=== PATIENT | female | born 1975 ===

== ENCOUNTER 2016-10-07 08:09 | Inpatient (IN) | payer OTHER ==
[~2016-10-07] VITALS: Ht 175.3 cm; Wt 135.0 kg
[2016-10-07] MEDS ORDERED: PRENTAB9 PO (08:19)
[2016-10-07] MEDS ORDERED: LABE10TAB PO (08:19)
[2016-10-07] MEDS ORDERED: miSOPROStol 25 MCG 1/4 TAB (S0191) As Ordered ONE (08:43)
[2016-10-07 09:09] VITALS: BP 122/80
[2016-10-07] MEDS ORDERED: AMPICILLIN SOD 2 GM in D5W MINI-BAG PLUS 100 ML IV STA (09:14)
[2016-10-07] MEDS ORDERED: miSOPROStol 25 MCG 1/4 TAB (S0191) PV ONE (09:15)
[2016-10-07] MEDS: LR 1,000 ML IV SCH ×2 (09:22→17:12)
[2016-10-07 09:41] LABS: MEAN CORPUSCULAR HEMOGLOBIN 33.4 pg (27.0-33.0); MEAN CORPUSCULAR VOLUME 92.7 fl (80.0-96.0); WHITE BLOOD COUNT 5.9 K/mm3 (4.0-10.0)
[2016-10-07 10:28] VITALS: BP 123/70
--- NOTE | 2016-10-07 10:36 | HPEPDOC ---
Obstetrical History & Physical General Date of Admission Oct 07, 2016 at 08:09 History of Present Illness Viji is a 41yo who presents at 39w1d for iol for CHTN for which she takes labetalol 100mg BID. She has had only occasional Gerson-Wu and no LOF or vaginal bleeding. Feels good movement. 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 Past Medical History Medical History Chronic Hypertension and Obesity Surgical History: Denies Family History Significant Family History: Diabetes Social History Marital Status: Family situation: Spouse/partner home Psychosocial History: No pertinent psych hx * Smoker: former Smoker (smoked 1ppd x20 years, quit 3 years ago) Imunizations Tdap status: current Influenza Status: current Allergies Coded Allergies: Doxycycline (Verified Allergy, Severe, LIPS SWELLING, 10/07/16) Medications Scheduled Multivitamins/ ( 27-0.8 mg) 1 Tab Tab 1 TAB PO DAILY Miscellaneous Medications Labetalol HCl (Labetalol HCl) 100 Mg Tab 100 MG PO Physical Examination Physical Examination GENERAL: Alert and oriented times three. BREAST: . ABDOMEN: Gravid and non-tender to touch. Obese. FETUS: Is vertex (VTX) by TAUS HEART RATE: Regular rate and rhythm. LUNGS: Clear to auscultation (CTA). EXTREMITIES: trace edema BLE Laboratory Data 24H LABS Laboratory Tests 2 10/07/16 08:14: Serology Scanned Report Hepatitis B Testing 10/07/16 09:20: CBC/BMP Laboratory Tests 10/07/16 09:20 Red Blood Count 3.84 L, Mean Corpuscular Volume 92.7, Mean Corpuscular Hemoglobin 33.4 H, Mean Corpuscular Hemoglobin Concent 36.0, Red Cell Distribution Width 14.0 Pertinent Laboratoy Data Blood Type: B+ RBC Antibody Screen: Negative HIV: Negative Hepatitis B: Negative Hepatitis C: Unknown Rapid Plasma Reagin: Nonreactive Rubella: Nonreactive Varicella: Immune Chlamydia/Gonorrhea: Negative Group B Streptococcus: Positive Glucose Tolerance Test: 97 Anatomy Ultrasound Ultrasound Date: Jul 20, 2016 Placenta Location: Posterior Normal Anatomy: Yes Placenta Previa: No Steroid Therapy Steroid Therapy: No Vaginal Examination Dilation: 1cm Effacement: 40-50% Station: -3 Cervical Consistency: Medium Cervical Position: Middle Presentation: Cephalic presentation Assessment Heart Rate (FHR): 150 Variability: Moderate Accelerations: Positive Decelerations: None Tocometer Contractions: No Assessment/Plan Assessment Viji is a 41yo who presents at 39w1d for iol for CHTN for which she takes labetalol 100mg BID. PMhx also significant for BMI 41 pre- (obesity) and advanced maternal age (41yo). Cat I tracing, no ctx. Cephalic by TAUS. SCE /-3. After counseling, mcneil bulb placed with speculum and ROM occurred inadvertently on mcneil placement. Clear fluid. 25mcg cytotec placed vaginally. GBS positive, will receive ampicillin. Plan Admit and orient. Counseled and consented for mcneil bulb, cytotec, pitocin, ROM- all questions answered Diet: clear fluids Group B Streptococcus (GBS) positive, tx with ampicillin (patient only has allergy to doxycycline) Labs and intravenous (IV) per unit protocol. Lactated Ringers (LR): 125 mL/hr. Anticipate normal spontaneous delivery () C-S as appropriate. Dr. Tiffany Hernandez MD FrederickTIFFANY Mock MD Oct 07, 2016 10:36
[2016-10-07 11:54] VITALS: BP 129/67
[2016-10-07 13:00] VITALS: BP 116/70
[2016-10-07] MEDS: AMPICILLIN SOD 1 GM in D5W MINI-BAG PLUS 50 ML IV SCH ×3 (13:51→22:35)
--- NOTE | 2016-10-07 15:05 | IPNPDOC ---
Text Note Date of Service The patient was seen on 10/07/16 at 14:59. NOTE Intrapartum Progress Note Mcneil bulb placed with speculum and ring forceps at 0900 this morning, but there was an audible "pop" sound with fluid coming out the catheter, consistent with SROM. A short time later, mcneil bulb came out, but the balloon was collapsed and when saline was pushed through the catheter, it leaked out the balloon- so presumably the mcneil bulb ruptured at time of placement. 25mcg vaginal cytotec was placed with that original mcneil bulb placement. At this check, unable to assess dilation of internal cervical os because station is high but external os still 1-2cm. Nitrazine paper used to confirm SROM, which immediately turned blue. Speculum again used to place another mcneil bulb through the os- this time with no complication. Given the inability to obtain continuous strip for patient, will not re-dose cytotec at this time. However, nursing strongly encouraged to obtain continuous strip and if able, will re-dose cytotec. Otherwise will await mcneil bulb falling out and place FSE to gain better assessment of FHRT. The FHRT that we have throughout has shown no decels, mod myrna. [place] now shows irreg ctx. Will continue to assess. Dr. Tiffany Hernandez MD [place], ROGER VS,Jozef, I+O VS, Jozef, I+O Laboratory Tests 10/07/16 09:20 Red Blood Count 3.84 L, Mean Corpuscular Volume 92.7, Mean Corpuscular Hemoglobin 33.4 H, Mean Corpuscular Hemoglobin Concent 36.0, Red Cell Distribution Width 14.0 Vital Signs Date Time Temp Pulse Resp B/P Pulse Ox O2 Delivery O2 Flow Rate FiO2 10/07/16 13:00 75 116/70 10/07/16 09:09 98.4 18 TIFFANY HERNANDEZ MD Oct 07, 2016 15:05
[2016-10-07] MEDS ORDERED: OXYTOCIN DRIP 30 UNITS in APPROPRIATE DILUENT 1 EA IV SCH (15:30)
--- NOTE | 2016-10-07 15:58 | IPNPDOC ---
Text Note Date of Service The patient was seen on 10/07/16 at 15:57. NOTE Now better able to monitor FHRT and shows mod myrna with no decels. Will begin low dose pitocin while mcneil bulb is in place rather than redosing cytotec since pt is alvin q2-3min. Will recheck after mcneil falls out and potentially place FSE. Dr. Brittany Hernandez MD [place] DURAN VS,Jozef, I+O VS, Jozef, I+O Laboratory Tests 10/07/16 09:20 Red Blood Count 3.84 L, Mean Corpuscular Volume 92.7, Mean Corpuscular Hemoglobin 33.4 H, Mean Corpuscular Hemoglobin Concent 36.0, Red Cell Distribution Width 14.0 Vital Signs Date Time Temp Pulse Resp B/P Pulse Ox O2 Delivery O2 Flow Rate FiO2 10/07/16 13:00 75 116/70 10/07/16 09:09 98.4 18 BRITTANY HERNANDEZ MD Oct 07, 2016 15:58
[2016-10-07] MEDS ORDERED: BUTORPHANOL 2 MG/ML INJ (J0595) IV ONE (23:00)
[2016-10-07] MEDS ORDERED: PROMETHAZINE INJ 25 MG/ML VIAL (J2550) IV ONE (23:00)
[2016-10-08] VITALS (8 sets, daily range): BP systolic 122–149; BP diastolic 61–85
[2016-10-08] MEDS ORDERED: BICITRA 30ML SOLN UDC As Ordered ONE (03:03)
[2016-10-08] MEDS ORDERED: ceFAZolin 2 GM/D5W 50 ML IV BAG (J0690) As Ordered ONE (03:03)
[2016-10-08] MEDS ORDERED: fentaNYL 100 MCG/2 ML INJECTION (J3010) As Ordered ONE ×2 (03:13→03:31)
[2016-10-08] MEDS ORDERED: MIDAZOLAM INJ 2 MG/2 ML VIAL (J2250) As Ordered ONE (03:13)
[2016-10-08] MEDS ORDERED: SUCCINYLCHOLINE 100 MG/5 ML SYRINGE (J0330) As Ordered ONE (03:16)
[2016-10-08] MEDS ORDERED: PROPOFOL 200 MG/20 ML VIAL As Ordered ONE (03:16)
[2016-10-08] MEDS ORDERED: MORPHINE PRES-FREE INJ 10 MG/10 ML VIAL (J2274) As Ordered ONE (03:23)
[2016-10-08] MEDS ORDERED: ONDANSETRON 4MG/2ML VIAL (J2405) As Ordered ONE (03:52)
[2016-10-08] MEDS ORDERED: KETOROLAC 60 MG/2 ML VIAL (J1885) As Ordered ONE (03:52)
[2016-10-08 04:02] LABS: CORD GAS ABE V -3.3; CORD GAS HCO3 V 21.8 MEQ/L; CORD GAS O2 SAT V 98.4 %; CORD GAS PCO2 V 39.4 mmHg; CORD GAS PH V 7.361 UNITS; CORD GAS PO2 V 84.4 mmHg; CORD GAS SBC V 21.8 MEQ/L
[2016-10-08] MEDS ORDERED: diphenhydrAMINE INJ 50MG/ML VIAL (J1200) IV PRN ×2 (05:00→05:15)
[2016-10-08] MEDS ORDERED: ONDANSETRON 4MG/2ML VIAL (J2405) IV PRN ×2 (05:00→05:15)
[2016-10-08] MEDS ORDERED: RHOGAM 300 MCG (1500 IU) INJ (J2790) IM SCH (05:00)
[2016-10-08] MEDS ORDERED: NALBUPHINE HCL 10 MG/ML AMP (J2300) IV PRN ×2 (05:00→05:15)
[2016-10-08] MEDS ORDERED: BICITRA 30ML SOLN UDC PO ONE (05:00)
[2016-10-08] MEDS ORDERED: NALOXONE INJ 0.4 MG/1 ML VIAL (J2310) IV PRN (05:00)
[2016-10-08] MEDS ORDERED: EPIDURAL/PCA KEYS XX PRN (05:00)
[2016-10-08] MEDS ORDERED: MOM 30ML SUSPENSION UDC PO PRN (05:00)
[2016-10-08] MEDS ORDERED: MORPHINE PCA 1MG/ML 100ML CADD IV PRN (05:00)
[2016-10-08] MEDS ORDERED: MEASLES,MUMPS,RUBELLA VACCINE INJ (MMR-II) (90707) SC SCH (05:00)
[2016-10-08] MEDS ORDERED: MORPHINE PCA 1MG/ML 100ML CADD As Ordered ONE (05:08)
[2016-10-08] MEDS ORDERED: fentaNYL 100 MCG/2 ML INJECTION (J3010) IV PRN (05:15)
[2016-10-08] MEDS ORDERED: MEPERIDINE INJ 25 MG/ML VIAL (J2175) IV PRN (05:15)
--- NOTE | 2016-10-08 05:20 | DNPDOC ---
Delivery Note Delivery Note DATE OF DELIVERY: Oct 08, 2016 at 0313 PRE-OP DIAGNOSIS: 1) Emergency section for NRFHT 2) Term IUP with iol for CHTN on labetalol 3) Morbid obesity 4) Advanced maternal age POST-OP DIAGNOSIS: 1) Emergency section for NRFHT 2) Term IUP with iol for CHTN on labetalol 3) Morbid obesity 4) Advanced maternal age PROCEDURE: Primary Low Transverse Section CONFERENCE CENTER MANAGER: Dr. Tiffany Hernandez MD, assisted by Dr. Mansoor Saravia ANESTHESIA: General ETA ESTIMATED BLOOD LOSS: 500 mL. IVF: 1500ml LR UOP: 600ml yellow clear urine FINDINGS: female , OA presentation, apgars 2/5/8, [id number] or 3510g. Clear amniotic fluid. No evidence of cord prolapse or placental abruption. Normal appearing uterus, fallopian tubes and ovaries. Cord gases: pHv 7.361, BE -3.3 DELIVERY INDICATION: (please see dictated operative report for full details of procedure) I was called to the room by RN to place an FSE after mcneil bulb fell out at 0223. At that time patient was on pitocin of 6 u. She had received stadol and phenergan for pain a few hours prior and was able to get good rest. FHRT had remained Cat I. Immediately after mcneil bulb fell out, patient had 2 quick but deep variable decelerations. RN reported large gush of fluid after mcneil bulb fell out. When I arrived to the room, patient had another decel in conjunction with a strong contraction to the 80's. I placed an FSE at that time and it registered the FHR to still be down (but no cord palpable), now in the 60's. Patient turned to her left side and given O2 mask, but with inadequate recovery, she was informed of necessity for emergency section. Anesthesia, OR tech and NICU physician were all alerted. Start of FHR deceleration occurred 253, difficult FSE placement with SCE 3/thick/high finished at 0300, out of room to OR at 030 and delivery occurred at 312 after betadine splash and receiving general endotracheal anesthesia. No obvious cause observed during for FHR deceleration that did not recover. Apgars 2/5/8, taken to NICU. pHv 7.361, BE -3.3. TIFFANY HERNANDEZ MD Oct 08, 2016 05:20
[2016-10-08] MEDS: KETOROLAC 30 MG/ML VIAL (J1885) IV SCH ×4 (06:25→23:00)
[2016-10-08] MEDS: LR 1,000 ML IV SCH (06:25)
--- NOTE | 2016-10-08 07:57 | REP ---
Clinical: Stat section without instrumentation count. Technique: Single portable view of the pelvis. Findings: No radiodense or obvious radiolucent foreign body is appreciated. Osseous structures are intact and normal. Bowel gas pattern is nonspecific. Impression: No foreign body identified. Signed by Quique Alexis MD 10/08/2016 07:48 A
[2016-10-08] MEDS: PRENATAL VITAMIN TAB PO SCH (08:09)
[2016-10-08] MEDS: DOCUSATE SODIUM 100 MG CAP PO SCH ×2 (08:09→21:00)
--- NOTE | 2016-10-08 09:31 | IPNPDOC ---
Text Note Date of Service The patient was seen on 10/08/16 at 09:23. NOTE Post-operative Day 0 Viji is a 41yo [id number] s/p emergency PLTCS at 39w2d indicated for NRFHT after presenting for iol for CHTN, doing well on POD 0. PMhx significant for morbid obesity, AMA and CHTN on labetalol. Has not yet ambulated (surgery was at 0300), mcneil in place, has not yet eaten. Receiving Toradol and WET PAN MIXER morphine for pain which is tolerable currently. Desires to breastfeed, infant currently in NICU. Lochia normal. Denies f/c/n/v/SOB/CP. Received GETA and betadine splash for emergent , had anceph 2g intra-op and ampicillin leading up to surgery for GBS pos. Vitals wnl (mild range bp's), afebrile General: WDWN, resting comfortably Abdomen: soft, appropriately tender to palpation with no rebound/guarding, uterine fundus at u-2cm, bandage is clean/dry/intact Extremities: no pain with palpation of BLE Pre-op H/H 12.8/35.6 Surgical EBL 500ml Assessment: Viji is a 41yo [id number] s/p emergency PLTCS at 39w2d indicated for NRFHT after presenting for iol for CHTN, doing well on POD 0. Vitals wnl with mild range bp's, exam benign. Hemodynamically stable with no e/ o infection. Plan: -routine /post-op care -WET PAN MIXER morphine with Toradol for now, will transition to percocet and motrin -mcneil to be removed this evening -regular diet -encourage and ambulation and use of IS as well as SCDs when in bed -Ok to shower 24hr after surgery and remove outer bandage MD Melanie Mckinney VS,Jozef, I+O VSJozef, I+O Vital Signs Date Time Temp Pulse Resp B/P Pulse Ox O2 Delivery O2 Flow Rate FiO2 10/08/16 08:15 97.4 79 18 149/81 100 Nasal Cannula 10/08/16 06:20 2.0 I&O- Last 24 Hours up to 6 AM 1/14/17 06:00 Intake Total 1424 ml Output Total 550 ml Balance 874 ml TIFFANY VELASCO MD Oct 08, 2016 09:31
--- NOTE | 2016-10-08 14:57 | RO ---
DATE OF PROCEDURE: 10/08/2016 PREPROCEDURE DIAGNOSIS: 1. Emergency section for nonreassuring heart tracing. 2. Term intrauterine with induction of labor for chronic hypertension, treated with labetalol. 3. Morbid obesity. 4. Advanced maternal age. POSTPROCEDURE DIAGNOSIS: 1. Emergency section for nonreassuring heart tracing. 2. Term intrauterine with induction of labor for chronic hypertension, treated with labetalol. 3. Morbid obesity. 4. Advanced maternal age. PROCEDURE PERFORMED: Primary low transverse section, emergent. SURGEON: Dr. Brittany Hernandez CONSTRUCTION QUALITY CONTROL MANAGER: Dr. Mansoor Saravia ANESTHESIA: CLINICAL SERVICE: Obstetrics (OB). INDICATION FOR OPERATION: Viji is a 41-year-old 2, now para 1-0-1-1 who was admitted at 39 weeks and 2 days for induction of labor related to her chronic hypertension that was treated with labetalol. She had Jewell bulb placed, Cytotec, eventually was on Pitocin. I was called to the room by the nurse to place a scalp electrode after her Jewell bulb fell out at 0223 hours. At that time, Viji was on a Pitocin of 6 units. She had received Stadol and Phenergan for pain a few hours prior and was able to get good rest. heart rate tracing had remained category 1. Immediately after the Jewell bulb fell out, she had two quick but deep variable decelerations and heart rate. The RN reported that there was a large gush of fluid after the Jewell bulb fell out. When I arrived to the room, the patient had another heart rate deceleration in conjunction with a strong contraction, down to the 80s. I placed a scalp electrode (FSE) at that time, and it registered the heart rate to still be down (but no cord palpable), now in the 60s. Patient turned to her left side and given an oxygen mask but with inadequate recovery of heart rate. She was informed of the necessity for emergency section. Anesthesia, operating room (OR) tech and the intensive care unit (NICU) physician were all alerted. Start of heart rate deceleration occurred at 0254 hours. The FSE placement was difficult because her cervical exam was 3, thick and high. The FSE placement finished at 0300 hours. We were out of the room to the OR by 0306 hours and the delivery occurred at 0313 hours after she had a Betadine splash and received general endotracheal anesthesia. No obvious cause was observed for the reason for the heart rate deceleration, that did not recur . The pH venous cord gas was 7.361 with base excess of -3.3. MATERIAL FORWARDED TO THE LABORATORY FOR EXAMINATION: Placenta and venous cord gas. DESCRIPTION OF FINDINGS: Female infant in occiput-anterior (OA) presentation with scores of 2, 5, 8. She weighed 7 pounds 12 ounces or 3510 grams. Clear amniotic fluid noted. No evidence of cord prolapse or placental abruption. Normal appearing uterus, fallopian tubes and ovaries. INFECTION CLASSIFICATION: 2. ESTIMATED BLOOD LOSS: 500 mL. IV FLUIDS: 1500 mL of lactated Ringer's. URINE OUTPUT: 600 mL of yellow clear urine. DESCRIPTION OF PROCEDURE: See the indication for operation for the description of events leading up to arriving in the operating room (OR). The patient was rushed to the OR, and she already had a Jewell catheter placed. She was given bilateral sequential compression devices, and she received a Betadine splash on her abdomen after being placed in dorsal supine position with a left lateral tilt. She was given 2 grams of IV Ancef. She then received general endotracheal anesthesia. As soon as anesthesia gave the go-ahead, a Pfannenstiel skin incision was made with a scalpel, carried through to the underlying layer of fascia. The fascia was incised in the midline, and the incision was extended laterally with blunt dissection. Underlying rectus muscles were dissected off bluntly. The rectus muscles were in the midline, and the peritoneum was entered digitally. The peritoneal incision was extended superiorly and inferiorly with good visualization of the bladder. Bladder blade was inserted and the lower uterine segment was scored in a transverse fashion with a scalpel. Uterus was entered bluntly, and the incision was extended with traction. Bladder blade was removed and the infant's head was delivered atraumatically. The cord was clamped times two and cut. The was immediately handed off to the awaiting nursing team. Venous cord gas was obtained, but the arterial gas was unable to be obtained because the umbilical artery was collapsed. Placenta was removed with uterine massage and traction on the cord. The uterus was exteriorized and cleared of all clot and debris. The uterine incision was repaired with #0 Vicryl in a running locking fashion and a second layer using #0 Monocryl was used to close the hysterotomy incision in an imbricating fashion. The uterine incision was inspected and hemostasis was noted after placing one more [id number] at the right lateral aspect of the incision, which had some continued bleeding but after the [id number] was placed, there was no further bleeding and everything was completely hemostatic. Posterior cul-de-sac was irrigated, and the uterus was returned to the abdomen after touching the right fimbria of the right fallopian tube with the Bovie cautery because it had a very small serosal bleed that did not stop with compression but after touching with the Bovie, there was complete hemostasis noted. The gutters were cleared of all clot and no further bleeding noted. The fascia was reapproximated with #0 Vicryl in a running fashion. Yazmin's fascia was reapproximated using #3-0 Vicryl in a running fashion in two separate layers after copiously irrigating. I then copiously irrigated again before closing the skin, which I reapproximated using three inverted interrupted stitches with #3-0 Vicryl followed by a running subcuticular stitch using #4-0 Monocryl suture. The incision was cleaned and dry sterile towel was placed. She then received an x-ray because the procedure was emergent and an accurate count was not obtained prior to beginning the emergent procedure. The x-ray showed no evidence of any retained instruments or laparotomy sponges. After that, the sterile towel was removed, Steri-Strips were applied in the usual fashion perpendicular to the Pfannenstiel incision. Telfa was layered on top of the Steri-Strips followed by dry sterile towel again. Surgical drapes were removed, sterile towel was removed and pressure dressing was applied over the entire surgical incision. The vagina was cleared of all blood clot without active bleeding noted. The procedure was without complications. She tolerated the procedure well. She was awakened from general endotracheal anesthesia in good condition, and she was taken to recovery in post-anesthesia care unit (PACU). After the procedure, I spoke with her and informed him of the nature of the emergent procedure, answered all of his questions and then I went and saw the in the NICU who was doing well after resuscitation.
[2016-10-09 01:39] VITALS: BP 126/71
[2016-10-09] MEDS: PERCOCET 5MG/325MG TAB PO PRN ×4 (05:40→21:03)
[2016-10-09 05:46] VITALS: BP 115/61
[2016-10-09] MEDS: IBUPROFEN 800 MG TAB PO SCH ×3 (06:33→22:58)
[2016-10-09 07:15] LABS: MEAN CORPUSCULAR HEMOGLOBIN 33.7 pg (27.0-33.0); MEAN CORPUSCULAR HGB CONC 35.4 g/dl (32.0-36.5); MEAN CORPUSCULAR VOLUME 95.2 fl (80.0-96.0); RED CELL DISTRIBUTION WIDTH 13.8 % (11.5-14.5); WHITE BLOOD COUNT 8.6 K/mm3 (4.0-10.0)
[2016-10-09] MEDS: DOCUSATE SODIUM 100 MG CAP PO SCH ×2 (08:14→21:02)
[2016-10-09] MEDS: PRENATAL VITAMIN TAB PO SCH (08:14)
[2016-10-09 10:00] VITALS: BP 133/74
[2016-10-09 14:34] VITALS: BP 131/77
[2016-10-09 18:00] VITALS: BP 132/76
[2016-10-09] MEDS ORDERED: zolPIDEM TARTRATE 5 MG TAB PO PRN (22:15)
[2016-10-09 22:40] VITALS: BP 124/68
[2016-10-10 02:40] VITALS: BP 112/62
[2016-10-10 06:00] VITALS: BP 131/64
[2016-10-10] MEDS: IBUPROFEN 800 MG TAB PO SCH (06:19)
[2016-10-10] MEDS: PERCOCET 5MG/325MG TAB PO PRN (06:59)
[2016-10-10] MEDS: PRENATAL VITAMIN TAB PO SCH (08:16)
[2016-10-10] MEDS: DOCUSATE SODIUM 100 MG CAP PO SCH (08:16)
--- NOTE | 2016-10-10 10:04 | IPNPDOC ---
Text Note Date of Service The patient was seen on 10/10/16 at 10:01. NOTE POD2 s/p emergent PLTCS for terminal decel under GETA S: Pt doing well. Pain well controlled, lochia minimal, voiding spontaneously, tolerating a regular diet, ambulating without difficulty. No f/c/n/v/DA SILVA. Pumping/breast feeding. Will use condoms for PP BC. O: normotensive, nml HR, afebrile H: RRR no m/g/r L: CTA b/l other than some slight wheezing Abd: soft, appropriately tender, and FF at U/fundus nontender, steris' not well applied, all removed Ext: no c/c/e CXR no formal read yet, but I looked at the images and saw nothing remarkable. A/P: S/p PLTCS, POD#2. Hemodynamically stable, afebrile, good pain control. -Routine postop care -discharge to boarding Sessions VS,Jozef, I+O VSJozef I+O Vital Signs Date Time Temp Pulse Resp B/P Pulse Ox O2 Delivery O2 Flow Rate FiO2 10/10/16 08:17 20 Room Air 10/10/16 06:00 96.3 85 131/64 98 10/08/16 06:20 2.0 SESSIONS,BRIANNA Torres MD Oct 10, 2016 10:04
--- NOTE | 2016-10-10 10:10 | DS.PDOC ---
Discharge Summary General Date of Admission Oct 07, 2016 at 08:09 Date of Discharge [id number] Discharge Summary Discharge Summary COMPLICATIONS/CHIEF COMPLAINT: Induction due to Chronic HTN ADMISSION DIAGNOSES: 1. Induction of labor DISCHARGE DIAGNOSES: 1. Emergent due to terminal bradycardia under General anesthesia HOSPITAL COURSE: Patient was admitted for Induction. All care and surgery done by Dr Brittany Hernandez. Cytotec, mcneil bulb and Pitocin utilized. Emergent performed due to a terminal bradycardia. General anesthesia. XRAY in the OR showed nothing remaining in the abdomen. No obvious cause was observed for the reason for the heart rate deceleration. The pH venous cord gas was 7.361 with base excess of -3.3. Remained afebrile throughout her post- operative hospital course. Met all discharge criteria on post-op day 2. Discharged to boarding status due to baby likely needing one more day of nursery /ICU care (on bilirubin lights). DISCHARGE MEDICATIONS: Motrin, Percocet, Lanolin, Miralax, plans on condoms for control PHYSICAL EXAMINATION ON DISCHARGE: see prog note from this AM VITAL SIGNS: Please see below. DISCHARGE CONDITION: stable DISPOSITION: to home ACTIVITY: Nothing in the vagina for 6-8 weeks. Regular diet. 2 weeks of no driving. Do not submerge in any water for at least 4 weeks (showers only). DISCHARGE PLAN AND INSTRUCTIONS: follow up in 1-2 weeks for an incision check with Dr Hernandez and at 6 week visit. Sessions TIME SPENT ON DISCHARGE: Greater than [15] minutes. Vital Signs/I&Os Vital Signs Date Time Temp Pulse Resp B/P Pulse Ox O2 Delivery O2 Flow Rate FiO2 10/10/16 08:17 20 Room Air 10/10/16 06:00 96.3 85 131/64 98 10/08/16 06:20 2.0 Medications Scheduled Multivitamins/ ( 27-0.8 mg) 1 Tab Tab 1 TAB PO DAILY Miscellaneous Medications Labetalol HCl (Labetalol HCl) 100 Mg Tab 100 MG PO Allergies Coded Allergies: Doxycycline (Verified Allergy, Severe, LIPS SWELLING, 10/07/16) BRIANNA CARNES MD Oct 10, 2016 10:10
[2016-10-10] MEDS ORDERED: OXYC1TAB23 PO (11:36)
[2016-10-10] MEDS ORDERED: COLA1CAP PO (11:36)
[2016-10-10] MEDS ORDERED: IBUP-1114 PO (11:36)
--- NOTE | 2016-10-10 14:28 | REP ---
PORTABLE CHEST X-RAY: Single view. HISTORY: Upper respiratory infection, audible wheezing. No comparison chest x-ray. FINDINGS: The lungs are symmetrically aerated and free of infiltrate. Heart is not enlarged. Pulmonary vasculature is not increased. Pleural angles are sharp. Heart size is normal. IMPRESSION: No acute disease seen. Signed by Luis Alberto Roblero MD 10/10/2016 03:34 P
== END 2016-10-10 12:05 | disposition home or self-care (01) | DRG 765 ==
LOC: M LDI 08:09 → M OBS 10-08 05:50
PROVIDERS: ADMIT Obstetrics & Gynecology; ATTEND Obstetrics & Gynecology
PROC: 3E0P7GC Introduction of Other Therapeutic Substance into Female Reproductive, Via Natural or Artificial Opening (ICD-10-PCS; 2016-10-07)
PROC: 10D00Z1 Extraction of Products of Conception, Low, Open Approach (ICD-10-PCS; principal; 2016-10-08 05:06)
DX: O10.02 Pre-existing essential hypertension complicating childbirth (principal); Z68.41 Body mass index [BMI] 40.0-44.9, adult; Z3A.39 39 weeks gestation of pregnancy; O99.214 Obesity complicating childbirth; E66.01 Morbid (severe) obesity due to excess calories; O99.824 Streptococcus B carrier state complicating childbirth; O76 Abnormality in fetal heart rate and rhythm complicating labor and delivery; Z37.0 Single live birth